=== PATIENT | male | born 1985 ===

== ENCOUNTER 2018-09-02 20:55 | Emergency (ER) | payer OTHER ==
[~2018-09-02] VITALS: Ht 180.3 cm; Wt 104.3 kg
[2018-09-02 22:00] LABS: Basophils # (auto) 0 uL; Basophils % (auto) 0.4 % (0.0-2.0); Eosinophils # (auto) 0.3 uL; Eosinophils % (auto) 4.2 % (0.0-7.0); Hematocrit 42.3 % (41.0-53.0); Hemoglobin 14.3 g/dL (13.5-17.5); Lymphocytes # (auto) 2.5 uL; Lymphocytes % (auto) 34.8 % (10.0-50.0); Mean Corpuscular Hemoglobin 31.7 pg (28.0-32.0); Mean Corpuscular Hgb Conc. 33.8 g/dL (32.0-36.0); Mean Corpuscular Volume 93.6 fL (80.0-100.0); Monocytes # (auto) 0.6 uL; Monocytes % (auto) 8.1 % (0.0-12.0); Neutrophils # (auto) 3.7 uL; Neutrophils % (auto) 52.5 % (37.0-80.0); Nucleated Red Blood Cells % 0.1 %; Platelet Count (auto) 206 10^3/uL (140-450); Red Blood Cells 4.52 10^6/uL (4.5-5.90); Red Cell Distribution Width 13.1 % (11.8-14.3); White Blood Cell 7.1 10^3/uL (4.4-10.8)
[2018-09-02 22:30] VITALS: BP 132/86
[2018-09-02 22:32] LABS: Alanine Aminotransferase 57 U/L (16-61); Albumin 4.3 g/dL (3.4-5.0); Alkaline Phosphatase 64 U/L (45-117); Anion Gap 5 (5-15); Aspartate Aminotransferase 74 U/L (15-37); BUN/Creatinine Ratio 17.9; Bilirubin, Total 1.1 mg/dL (0.2-1.0); Blood Alcohol < 3.0 mg/dL (0-5); Blood Urea Nitrogen 17 mg/dL (7-18); Carbon Dioxide 27 mmol/L (21-32); Chloride 105 mmol/L (98-107); GFR African American 117 mL/min; GFR Non-African American 96 mL/min; Glucose 92 mg/dL (74-106); Potassium 4.1 mmol/L (3.5-5.1); Salicylate < 1.7 mg/dL (2.8-20.0); Sodium 137 mmol/L (136-145); Total Protein 7.8 g/dL (6.4-8.2)
[2018-09-02 22:34] LABS: Acetaminophen < 2.0 ug/mL (10-30)
== END 2018-09-02 23:15 | disposition home or self-care (01) ==
LOC: EEVIPCON 21:02 → ER 21:02
DX: T18.9XXA Foreign body of alimentary tract, part unspecified, initial encounter (principal); F32.9 Major depressive disorder, single episode, unspecified; F41.9 Anxiety disorder, unspecified; X58.XXXA Exposure to other specified factors, initial encounter; Y93.89 Activity, other specified; Y99.8 Other external cause status; Y92.148 Other place in prison as the place of occurrence of the external cause
CPT/HCPCS: 36415; 71250; 74176; 80053; 80320; 80329; 85025